=== PATIENT | male | born 1960 | race Caucasian/White ===

== ENCOUNTER 2023-01-11 03:58 | Day surgery (SDC) | payer OTHER ==
[2023-01-06 14:12] VITALS: BMI 24.0
[2023-01-11] MEDS ORDERED: MIDAZOLAM HCL 2 MG/2 ML SINGLE DOSE VIAL ONE (10:20)
[2023-01-11] MEDS ORDERED: PROPOFOL 40 ML ONE (10:20)
[2023-01-11] MEDS ORDERED: BUPIVACAINE HCL/PF 0.5% (5MG/ML) 10 ML VIAL ONE (10:22)
[2023-01-11] MEDS ORDERED: LIDOCAINE HCL 2% (20ML MULTI-DOSE VIAL) ONE (10:22)
[2023-01-11] MEDS ORDERED: ceFAZolin SODIUM 1 GM VIAL ONE ×2 (10:39)
[2023-01-11] MEDS ORDERED: ceFAZolin SODIUM 1 GM VIAL IVPB ONE (10:40)
[2023-01-11] MEDS ORDERED: BUPIVACAINE HCL/PF 0.5% (5 MG/ML) 30 ML VIAL IJ ONE (10:47)
[2023-01-11] MEDS ORDERED: LIDOCAINE HCL 2% (50ML VIAL) INF ONE (10:47)
[2023-01-11] MEDS ORDERED: PROPOFOL 20 ML ONE ×2 (10:57→11:34)
[2023-01-11] MEDS ORDERED: KETOROLAC TROMETHAMINE 30 MG/1 ML VIAL ONE (11:10)
[2023-01-11] MEDS ORDERED: ONDANSETRON 4 MG/2 ML VIAL ONE (11:10)
[2023-01-11] MEDS ORDERED: DEXAMETHASONE SOD PHOSPHATE 4 MG/1 ML VIAL ONE (11:10)
[2023-01-11] MEDS ORDERED: DEXAMETHASONE SOD PHOSPHATE 4 MG/1 ML VIAL NR ONE (11:43)
[2023-01-11] MEDS ORDERED: ONDANSETRON 4 MG/2 ML VIAL IVPUSH PRN (11:56)
[2023-01-11] MEDS ORDERED: ACETAMINOPHEN 325 MG TABLET (FP) PO PRN (11:56)
[2023-01-11] MEDS ORDERED: oxyCODONE HCL 5 MG TABLET PO PRN (11:56)
[2023-01-11] MEDS ORDERED: LACTATED RINGERS SOLUTION 1,000 ML IV SCH (12:00)
[2023-01-11 13:15] VITALS: RESP 18
[2023-01-11 14:52] VITALS: BP 118/57; PULSE 67; TEMP 97.6
== END 2023-01-11 14:53 | disposition home or self-care (01) ==
LOC: JASU-SURG 03:58
PROVIDERS: ATTEND Podiatrist
PROC: 0SRP0JZ Replacement of Right Toe Phalangeal Joint with Synthetic Substitute, Open Approach (ICD-10-PCS; 2023-01-11)
PROC: 0L8V0ZZ Division of Right Foot Tendon, Open Approach (ICD-10-PCS; 2023-01-11)
PROC: 0SNP0ZZ Release Right Toe Phalangeal Joint, Open Approach (ICD-10-PCS; principal; 2023-01-11 10:00)
DX: M20.11 Hallux valgus (acquired), right foot (principal); M20.41 Other hammer toe(s) (acquired), right foot; M89.271 Other disorders of bone development and growth, right ankle and foot
CPT/HCPCS: 73630-TC-RT-FY; 88305-TC; 88311-TC; 94760